=== PATIENT | male | born 1960 | race American Indian/Alaskan Native ===

== ENCOUNTER 2019-04-28 11:41 | Day surgery (SDC) | payer OTHER ==
[2019-04-28] MEDS ORDERED: NACL 0.9% 1000 ML 1,000 ML IV SCH (12:00)
[2019-04-28] MEDS ORDERED: XYLOCAINE MPF 2% ONE (12:00)
--- NOTE | 2019-04-28 12:57 | Operative Report ---
Operative Report Operative Report: Date of procedure: 04/28/2019 Procedure: Colonoscopy with Submucosal injection, Multiple Snare polypectomies, Hot Biopsy Polypectomy and Ablation of colon polyps . Attending physician: Tyler Roland M.D. Registered Nurse Cardiac Telemetry: Tyler Roland M.D. Indication: Patient is a 58-year-old male who presents for screening colonoscopy. Patient has a personal history of colon polyps. This colonoscopy serves to evaluate patient so that treatment may be directed based on the findings. Consent: Informed consent was obtained after advising the patient and family regarding nature of this procedure, its indications, potential benefits as well as possible complications including but not limited to bleeding perforation and adverse reaction to medication, infection as well as other cardiopulmonary complications. An informed written and verbal consent was then obtained after due opportunity was provided for questions and answers. Monitoring: Patient was monitored continuously with pulse oximetry and electrocardiographic recordings as well as blood pressure recordings. Vital signs remained stable throughout this procedure with no untoward events. Preoperative assessment: Patient was assessed immediately prior to this procedure for capacity to tolerate monitored anesthesia care and moderate sedation as well as general anesthesia. Patient's ASA classification is 2, Mallampati class is 2, Hyomental distance is 3. Instrument: Olympus HD video colonoscope [id number] Medications: Propofol given intravenously in divided doses. For details please refer to anesthesia records. Description of procedure: Patient was placed in the left lateral decubitus position after achieving sedation, a digital rectal examination was performed following which the colonoscope was introduced into the anal verge and advanced to the cecum which was identified by the cecal valve, the appendiceal orifice, as well as by the cecal strap and direct transillumination. The colonoscope was subsequently withdrawn with careful inspection of all mucosal surfaces. Patient tolerated this procedure well and was subsequently taken to the recovery room. The following findings were noted. Findings: Patient has substantial retained stool in the Cecum, ascending colon, transverse colon, descending colon and sigmoid colon. In the transverse colon, patient had a diminutive flat polyp that was removed by hot biopsy polypectomy and retrieved. In the sigmoid colon patient had 2 flat 1 cm polyps. These were each elevated with submucosal injection of saline and removed by snare electrocautery and retrieved. There was another diminutive polyp in the sigmoid colon which was ablated. There were scattered diverticula in the sigmoid colon, descending colon and ascending colon. On the retroflexed view of the anal verge, patient had prominent large internal hemorrhoids. Impression: Transverse colon polyp status post hot biopsy polypectomy. Sigmoid colon polyp x2 status post submucosal injection, with snare polypectomy. Sigmoid colon polyp status post ablation. Diverticular disease of the colon. Poor colonoscopic preparation with retained stool Prominent Internal hemorrhoids. Plan: Follow pathology report. High-fiber diet. Repeat colonoscopy in 12 months due to poor colonoscopic preparation. Patient will benefit from hemorrhoidal band ligation in the near future
[2019-04-28] MEDS ORDERED: DIPRIVAN 10 MG/ML IV ONE (13:13)
[2019-04-28] MEDS ORDERED: VERSED ONE (13:13)
--- NOTE | 2019-04-28 13:40 | Discharge Summary ---
Short Stay Discharge Plan Activity: advance as tolerated Weight Bearing Status: Weight Bear as Tolerated Diet: regular Follow up with: [facility] [Primary Care Provider] - 7 Days
[2019-04-28 15:15] VITALS: BP 119/92
--- NOTE | 2019-04-28 15:43 | Anesthesia Day of Surgery ---
Anesthesia Day of Surgery - Day of Surgery Patient Examined: Yes Patient H&P Reviewed: Yes Patient is NPO: Yes Beta Blockers: No
--- NOTE | 2019-04-28 15:44 | Anesthesia Consultation ---
Anesthesia Consult and Med Hx Date of service: 04/28/19 - Airway Anesthetic Teeth Evaluation: Good ROM Head & Neck: Adequate Mental/Hyoid Distance: Adequate Mallampati Class: Class II Intubation Access Assessment: Probably Good - Pulmonary Exam CTA: Yes - Cardiac Exam Cardiac Exam: No Murmur - Pre-Operative Health Status ASA Pre-Surgery Classification: ASA2 Proposed Anesthetic Plan: MAC - Pulmonary Hx Sleep Apnea: Yes - Other Systems Hx Obesity: Yes
== END 2019-04-28 11:42 | disposition home or self-care (01) ==
LOC: GIO 11:41
PROVIDERS: ATTEND Internal Medicine Gastroenterology
DX: Z12.11 Encounter for screening for malignant neoplasm of colon (principal); K63.5 Polyp of colon; K64.8 Other hemorrhoids; K57.30 Diverticulosis of large intestine without perforation or abscess without bleeding; F17.210 Nicotine dependence, cigarettes, uncomplicated; G47.30 Sleep apnea, unspecified; E66.9 Obesity, unspecified; Z68.37 Body mass index [BMI] 37.0-37.9, adult; Z79.899 Other long term (current) drug therapy
CPT/HCPCS: 45381; 45384; 45385; 45388; 88305; J2250; J2704; J7030